=== PATIENT | male | born 1985 | race Caucasian/White ===

== ENCOUNTER → 2020-03-13 15:06 | Outpatient (BNVA) | payer OTHER, SELFPAY | PROVIDERS: Visit Provider Nurse Practitioner Family | DX: Z20.828 Contact with and (suspected) exposure to other viral communicable diseases (principal); J04.0 Acute laryngitis; J01.00 Acute maxillary sinusitis, unspecified | CPT/HCPCS: 87635 ==

== ENCOUNTER → 2022-03-20 10:43 | Outpatient (BNVA) | payer OTHER, SELFPAY | PROVIDERS: Visit Provider Emergency Medicine | DX: R09.81 Nasal congestion (principal); J10.1 Influenza due to other identified influenza virus with other respiratory manifestations | CPT/HCPCS: 87400; 87880 ==